=== PATIENT | female | born 1990 | race Caucasian/White ===

== ENCOUNTER 2019-06-26 09:40 | Emergency (ER) | payer OTHER ==
[~2019-06-26] VITALS: Ht 165.1 cm; Wt 89.4 kg
[2019-06-26 12:18] LABS: BASOPHIL % 0.2 % (0-2); PLATELET COUNT 294 x10^3mcL (130-400); RED CELL DISTRIBUTION WIDTH 13.4 % (11.5-14.5)
[2019-06-26 12:28] LABS: CHLORIDE SERUM 106 mmol/L (98-107); POTASSIUM SERUM 4.9 mmol/L (3.5-5.1); SODIUM SERUM 139 mmol/L (136-145)
[2019-06-26 12:29] LABS: CARBON DIOXIDE 21.5 mmol/L (21-32); CREATININE SERUM 0.8 mg/dL (0.6-1.0); GFR1 > 60 mL/min; GLUCOSE SERUM 100 mg/dL (74-106); TOTAL PROTEIN, SERUM 8.2 g/dL (6.4-8.2)
[2019-06-26 12:30] LABS: ALKALINE PHOSPHATASE 133 U/L (46-116); ALT/SGPT 52 U/L (14-59); AMYLASE 64 U/L (25-115); AST/SGOT 37 U/L (15-37); BILIRUBIN TOTAL 0.86 mg/dL (0.20-1.00); CALCIUM 9.1 mg/dL (8.5-10.1); LIPASE 105 IU/L (73-393)
[2019-06-26 13:28] LABS: UA SPECIFIC GRAVITY >=1.030 (1.005-1.035); microscopic required? YES; urine erythrocyte TRACE (NEGATIVE)
[2019-06-26 14:05] LABS: AMPHETAMINE QUAL UR NONE DETECTED (See below)
[2019-06-26 14:21] VITALS: BP 103/59
== END 2019-06-26 14:21 | disposition home or self-care (01) ==
LOC: ED 09:40
PROVIDERS: Emergency Medicine
DX: R11.2 Nausea with vomiting, unspecified (principal); R19.7 Diarrhea, unspecified; R10.817 Generalized abdominal tenderness; E78.00 Pure hypercholesterolemia, unspecified
CPT/HCPCS: J2270; J2405; J3490

== ENCOUNTER 2019-08-04 20:47 | Emergency (ER) | payer OTHER ==
[~2019-08-04] VITALS: Ht 165.1 cm; Wt 93.9 kg
[2019-08-04 21:00] VITALS: Ht 165.1 cm; Wt 93.9 kg
[2019-08-04 21:48] VITALS: BP 120/87
== END 2019-08-04 21:48 | disposition home or self-care (01) ==
LOC: ED 20:47
DX: S13.4XXA Sprain of ligaments of cervical spine, initial encounter (principal); M25.532 Pain in left wrist; M25.531 Pain in right wrist; M25.521 Pain in right elbow; M25.522 Pain in left elbow; E78.00 Pure hypercholesterolemia, unspecified; V49.69XA Unspecified car occupant injured in collision with other motor vehicles in traffic accident, initial encounter; Y93.89 Activity, other specified; Y92.488 Other paved roadways as the place of occurrence of the external cause; Y99.8 Other external cause status